=== PATIENT | female | born 1945 | race Two or more races ===

== ENCOUNTER 2025-01-21 09:29 | Emergency (ER) | payer SELFPAY ==
[2025-01-21 09:41] VITALS: BP 170/82; PULSE 71; RESP 17; TEMP 36.8; O2SAT 98; BMI 19.1
--- NOTE | 2025-01-21 10:13 | EDNOTE_ITS ---
<Statement entered by Emma Archibald MD - 01/31/25 19:39> As co-signing physician, I was present and available for consult prn. I concur with the plan and care as documented by the midlevel provider. ED Skin Abcess FB-RME/HPI General Chief complaint: Skin/Abscess/Foreign Body Stated complaint: RASH X 4 DAYS W/ PAIN & BURNING SENSATION Time Seen by Provider: 01/21/25 09:38 Source: patient Arrival date/time: 01/21/25 09:29 79-year-old female with no known medical history presents to the emergency room with a chief complaint of a rash to her bilateral hips and pelvis x 4 days Mode of arrival: ambulatory Limitations: no limitations Related Data Previous Rx's ?Medication ?Instructions ?Recorded hydrocortisone 1 % topical cream 1 applic topical BID PRN itching 01/21/25 #28.35 grams Allergies Allergy/AdvReac Type Severity Reaction Status Date / Time Penicillins Allergy Severe Dizziness Verified 01/21/25 09:37 Review of Systems Review of Systems Systems Reviewed: All systems reviewed, normal except as documented Constitutional Constitutional: Reports system reviewed and no additional complaints, except as documented, Denies fatigue, Denies fever(s), Denies headache(s) and Denies weakness Eyes Eyes: Reports system reviewed and no additional complaints, except as documented, Denies blurry vision and Denies change in vision ENT Ears, Nose, Mouth, and Throat: Reports system reviewed and no additional complaints, except as documented, Denies otalgia, Denies headache(s), Denies nasal congestion, Denies throat swelling and Denies vertigo Cardiovascular Cardiovascular: Reports system reviewed and no additional complaints, except as documented, Denies chest pain, Denies dyspnea and Denies dyspnea on exertion Respiratory Respiratory: Reports system reviewed and no additional complaints, except as documented, Denies chest congestion, Denies cough, Denies dyspnea, Denies dyspnea on exertion and Denies wheezing Gastrointestinal Gastrointestinal: Reports system reviewed and no additional complaints, except as documented, Denies abdominal pain, Denies cramping, Denies nausea and Denies vomiting Genitourinary Genitourinary: Reports system reviewed and no additional complaints, except as documented Musculoskeletal Musculoskeletal: Reports system reviewed and no additional complaints, except as documented and Denies back pain Integumentary/Breasts Skin/Breast: Reports system reviewed and no additional complaints, except as documented and Denies wounds Neurologic Neurologic: Reports system reviewed and no additional complaints, except as documented, Denies confusion, Denies headache(s), Denies lack of coordination, Denies vertigo and Denies weakness Psychiatric Psychiatric: Reports system reviewed and no additional complaints, except as documented, Denies anxiety, Denies confusion, Denies depression, Denies paranoia, Denies suicidal ideation and Denies tactile hallucinations Endocrine Endocrine: Reports system reviewed and no additional complaints, except as documented and Denies fatigue Hematologic/Lymphatic Hematologic/Lymphatic: Reports system reviewed and no additional complaints, except as documented and Denies lymphadenopathy Allergic/Immunologic Allergic/Immunologic: Reports system reviewed and no additional complaints, except as documented, Denies throat swelling, Denies urticaria and Denies wheezing Past Medical History Social History SMOKING STATUS: Never smoker ED Exam General Limitations: Present no limitations General appearance: Present alert and in no apparent distress Head Head exam: Present atraumatic Eye Eye exam: Present normal appearance, PERRL and EOMI ENT ENT exam: Present normal exam, normal oropharynx and mucous membranes moist Neck Neck exam: Present normal inspection, full ROM and trachea midline Chest Chest inspection: Present normal inspection and symmetric chest wall rise Respiratory Respiratory exam: Present normal lung sounds bilaterally Cardiovascular Cardiovascular exam: Present regular rate, normal rhythm and normal heart sounds Abdominal Exam Abdominal exam: Present soft and normal bowel sounds Extremities Exam Extremities exam: Present normal inspection and full ROM Back Exam Back exam: Present normal inspection and full ROM Neurological Exam Neurological exam: Present alert, oriented X3 and CN II-XII intact Psychiatric Psychiatric exam: Present normal affect and normal mood Skin Skin exam: Present warm, dry, intact and normal color Expanded Skin Exam Type of lesion: Present rash Distribution: Present abdomen Description: Present tenderness, erythematous, macular, blisters and crusting; Absent discharge Body image: 2 1. rash to her groin area 2. Rash to her groin area Course Quality Measures none Orders Category Date Time Status Dexamethasone Inj [Decadron Inj] Med 01/21/25 10:00 Discontinued 10 mg PO X1 ONE DiphenhydrAMINE [Benadryl] Med 01/21/25 10:00 Discontinued 25 mg PO X1 ONE Famotidine [Pepcid] Med 01/21/25 10:00 Discontinued 20 mg PO X1 ONE Vital Signs Vital signs: Vital Signs Temperature 98.2 F 01/21/25 09:41 Pulse Rate 71 01/21/25 09:41 Respiratory Rate 17 01/21/25 09:41 Blood Pressure 170/82 H 01/21/25 09:41 Pulse Oximetry (%) 98 01/21/25 09:41 Oxygen Delivery Method Room Air 01/21/25 09:41 Skin / Abscess / Foreign Body MDM Narrative MDM Narrative:: 79-year-old female with no known medical history presents to the emergency room with a chief complaint of a rash to her bilateral hips and pelvis x 4 days Patient is hemodynamically stable and in no apparent distress Physical examination shows a erythemic rash to the groin area. Patient states his rash has been going on for the last 4 days. The patient was prescribed some antifungal cream and the patient states she has been taking it for 1 day with no improvement. I spoke to the patient and told her she is on the correct treatment and to continue to take this antifungal cream. I also sent the patient with medication to help her with her itching symptoms Patient was discharged and educated to follow-up with primary care provider in the next 24 to 48 hours and return to the emergency room for any evidence of worsening signs or symptoms Patient data External records reviewed:: [facility] previous records Clinical information provided by:: patient Social determinants that could affect healthcare access:: none Patient has the following chronic illnesses:: No chronic illness How is presenting disease/condition affected by chronic disease/condition?: no chronic disease Evaluation data The following diagnostics were reviewed and interpreted by me:: lab results and radiology exam(s) Lab and/or radiology exams considered but not ordered:: Labs and radiology exams considered and ordered Interpretation Summary: N/A Medications / Prescriptions Medications or Prescriptions considered but not ordered:: Medication given Medication administrations:: Medication Administration History Discontinued Medications Dexamethasone Sodium Phosphate (Dexamethasone Sod Phos Inj 10 Mg/Ml Vial) 10 mg PO X1 ONE Stop: 01/21/25 10:01 Last Admin: 01/21/25 10:23 Dose: 10 mg Documented By: HERMELINDA Diphenhydramine HCl (Diphenhydramine Elix 25 Mg/10 [facility] [place]) 25 mg PO X1 ONE Stop: 01/21/25 10:01 Last Admin: 01/21/25 10:24 Dose: 25 mg Documented By: HERMELINDA Famotidine (Famotidine 20 Mg Tablet) 20 mg PO X1 ONE Stop: 07/01/25 10:01 Last Admin: 01/21/25 10:24 Dose: Not Given Documented By: HERMELINDA Non-Admin Reason: Cancelled by Provider Medication given Consultations Consultation(s) initiated? (list below): No Diagnosis Skin/Abscess Differential Diagnosis: cellulitis and contact dermatitis Most likely diagnosis given after review of the tests above:: Contact dermatitis Admission Indicated Admission indicated?: not indicated Admission Request Was there a request for admission?: No Disposition Plan Disposition Plan: Discharge Discharge Attestation Discharge Attestation: The patient and all family members were given an opportunity to ask questions and understood the discharge instructions. Discharge instructions specifically effects, indications for sooner follow up or return to the emergency department, and the expected course of current diagnosis. Patient condition: Stable Discharge Plan Plan Patient Disposition: HOME (Self Care) Discharge Disposition comment: Stable Prescriptions/Referrals Prescriptions/Med Rec: New hydrocortisone 1 % cream 1 applic topical BID PRN (Reason: itching) Qty: 28.35 0RF Problem List Clinical Impression: Contact dermatitis Patient/Caregiver Discharge Instructions Education Materials: Understanding Contact Dermatitis, ED Contact Dermatitis Additional Instructions: Por favor, consulte con palma m?dico de cabecera en las pr?ximas 24 a 48 horas. El medicamento fue enviado a palma farmacia; rec?jalo y t?maldonado seg?n las indicaciones. Si jessi signos y s?ntomas persisten, palma m?dico de cabecera lo derivar? a un dermat?logo para un tratamiento adicional. Si observa cualquier signo de empeoramiento de los signos o s?ntomas, acuda a urgencias de inmediato. Print Language: Japanese Stand Alone Forms: Trisha Award Info., Patient Portal Info Letter PA/DEVON Supervising Physician PA/DEVON Supervising Physician: Dr. ARCHIBALD
[2025-01-21] MEDS: DEXAMETHASONE SOD PHOS INJ 10 MG/ML VIAL PO (10:23)
[2025-01-21] MEDS: DiphenhydrAMINE ELIX 25 MG/10 ML UDC PO (10:24)
== END 2025-01-21 10:29 | disposition home or self-care (01) ==
LOC: SERX 10:43
PROVIDERS: Emergency Provider Emergency Medicine
DX: L25.9 Unspecified contact dermatitis, unspecified cause (principal)
CPT/HCPCS: 99282; J1100; A9270